=== PATIENT | male | born 1965 | race Caucasian/White ===

== ENCOUNTER 2024-08-23 09:41 | Day surgery (SDC) | payer OTHER, BC ==
[2024-08-20 12:08] LABS: Anion Gap 7.6 mEq/L (5.0-15.0); Potassium 4.6 mEq/L (3.5-5.1)
[2024-08-20 12:20] LABS: Absolute Lymphocytes (CBC) 1.1 K/uL (0.7-4.9); Absolute Monocytes 0.5 K/uL (0.1-1.3); Absolute Neutrophil 4.4 K/uL (1.8-8.0); Basophils % 0.3 % (0-1.3); Eosinophils % 0.7 % (0-4.4); Hematocrit 43.8 % (39.6-49.0); Hemoglobin 15.8 g/dL (13.6-17.9); Lymphocytes % 18.5 % (15.3-44.8); MCH 30.8 pg (27.0-35.0); MCV 85.6 fL (80-100); MPV 7.2 fL (7.6-11.3); Monocytes % 7.9 % (3.3-12.3); Neutrophils % 72.6 % (41.7-73.7); Platelets 253 thou/uL (152-406); RBC Red Blood Cell Count 5.11 M/uL (4.33-5.43); Red Cell Distribution Width 13.6 % (12.1-15.2)
--- NOTE | 2024-08-21 11:31 | EKG ---
Test Date: 2024-08-20 Test Time: 12:13:36 Transit Operator: LOVE MEASUREMENT RESULTS: Intervals: Rate: 74 UT: 140 QRSD: 88 QT: 420 QTc: 466 [place]: P: 62 UT: 140 QRS: 40 T: 50 INTERPRETIVE STATEMENTS: Normal sinus rhythm Possible Left atrial enlargement Septal infarct, age undetermined Abnormal ECG No previous ECG available for comparison Electronically Signed On 08-21-24 11:28:18 HEALTH CONSULTANT by Jackson Isaacs
[2024-08-23 10:19] LABS: Anion Gap 8.2 mEq/L (5.0-15.0); Potassium 4.2 mEq/L (3.5-5.1)
[2024-08-23 10:31] VITALS: BP 152/82; TEMP 99.4; O2SAT 99
== END 2024-08-23 10:26 | disposition home or self-care (01) ==
LOC: OR 09:41
PROVIDERS: ATTEND Surgery
DX: K40.90 Unilateral inguinal hernia, without obstruction or gangrene, not specified as recurrent (principal); Z53.09 Procedure and treatment not carried out because of other contraindication
CPT/HCPCS: 36415; 80048; 85025; 93005

== ENCOUNTER 2024-10-06 13:11 | Emergency (ER) | payer OTHER, BC ==
--- OUTSIDE RECORDS SUMMARY | 2024-10-06 13:15 | XMS REPORT | Continuity of Care Document ---
Author Name Unknown Organization [facility] [place] Address [address] [place] [address] Care Team Providers Care Radio Antenna Installer Name Role Phone Russell Cowan MD Unavailable [phone] Marisela Rao MD Primary Care Provider + [phone] Wendy Christianson [facility] Unavailable [phone] Valentina Arias MD PhD Unavailable + [phone] Sonido Shaw MD Unavailable Encounters Date Type Department Care Team Description 09/26/2024 Orders Only [facility] [address] [place] [address] Main [facility], 7th [address] [place], [place] [id number] Cecy Sorto APRN Oligodendroglioma (Primary Dx); Hyposmolality and/or hyponatremia 09/04/2024 Telephone [facility] [address] [facility] Main [facility], 7th [place] [address] Laina Zuniga, TRINI 06/28/2024 Orders Only [facility] [address] [facility] Main [facility], 7th [address] [place], [place] [id number] Cecy Sorto APRN Oligodendroglioma (Primary Dx) 06/24/2024 10:20 AM GLASS ENAMEL MIXER - 06/24/2024 11:59 PM GLASS ENAMEL MIXER Hospital Encounter Radiation Treatment Center [address] [facility], 1st [place] [address] Valentina Arias MD PhD Oligodendroglioma (Primary Dx) Discharge Disposition: Home 06/18/[address] Imaging [address] [facility], 7th [place] [address] Haleigh Hand MD 06/18/2024 Travel 06/18/2024 9:15 AM GLASS ENAMEL MIXER Ancillary Procedure [facility] Outpatient [facility] [address] [place] [address] Marisela Rao MD Oligodendroglioma 06/18/2024 1:00 PM GLASS ENAMEL MIXER Office Visit [facility] [address] [facility], 7th [place] [address] Marisela Rao MD Oligodendroglioma 01/16/2024 4:00 PM CDT Telephone [facility] [address] [facility], 7th [place] [address] Marisela Rao MD 12/20/2023 Orders Only Neuroradiology [address] [place] [address] Brandon Calderon MD 12/20/2023 8:48 AM CDT - 12/20/2023 11:59 PM CDT Hospital Encounter Proton Therapy Center [address] [place] [address] Valentina Arias MD PhD Oligodendroglioma Discharge Disposition: Home 12/19/2023 Travel 12/19/2023 9:15 AM CDT Ancillary Procedure [facility] [address] [place] [address] Cecy Sorto APRN Oligodendroglioma 12/19/2023 1:00 PM CDT Office Visit [facility] [address] [facility], 7th [place] [address] Marisela Rao MD Oligodendroglioma 11/07/2023 Orders Only [facility] [address] [facility] Main Bldg, 7th [place] [address] Cecy Sorto APRN Oligodendroglioma (Primary Dx) 10/25/2023 Orders Only [facility] [address] [facility] Main dg, 7th [place] [address] Cecy Sorto APRN Seizure, not otherwise specified (Primary Dx); Oligodendroglioma; 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 Active loratadine (CLARITIN) 10 mg tablet Take 1 tablet (10 mg) by mouth every 8 (eight) hours as needed for allergies. Active ascorbic acid, vitamin C, (VITAMIN C) 100 mg tablet Take 5 tablets (500 mg) by mouth daily. Active cholecalciferol, vitamin D3, (VITAMIN D3) 5,000 units tab tablet Take 400 Units by mouth. Active OXcarbazepine (TrileptaL) 300 mg tabletIndication s:Oligodendrogli jerry,Seizure, not otherwise specified Take 2 tablets (600 mg) by mouth twice daily. 360 tablet 3 10/25/19 24 Active polyethylene glycol (MIRALAX) 17 g packetIndication s:Saddle embolism of pulmonary artery,Acute deep venous thrombosis of right femoral vein,Other constipation Take 17 g by mouth daily as needed (constipati on). 0 08/24/19 22 024 Discontinued(Ot her/Not Applicable) zinc gluconate 50 mg tablet Take 1 tablet (50 mg) by mouth daily. 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 90 tablet 3 09/17/19 23 024 Discontinued(Re order) OXcarbazepine (TrileptaL) 150 mg tabletIndication s:Oligodendrogli jerry,Seizure, not otherwise specified Take 3 tablets (450 mg) by mouth twice daily. 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 90 tablet 3 10/25/19 24 024 Discontinued(Th erapy completed) after 10/07/2023 Active Problems Problem Noted Date Diagnosed Date Long-term use of anticoagulants 11/15/2022 Assessment & Plan (11/15/2022 9:37 AM CDT): At this time, will place order for IVC retrieval. Original plan was for patient to stay on anticoagulation management for 3 months post retrieval. Due to oncologic history of brain CA, may need to be on anticoagulation management low dose indefinitely. 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 He was previously experiencing headaches, but they have resolved on dexamethasone 2mg daily. The pt will begin steroid taper next week, per Dr. Arias. Labs today are unremarkable and there is no recent imaging. Plan is to proceed with adjuvant Temodar chemotherapy x 12 cycles. Pt will RTC in 3 weeks for labs, imaging, and visit to discuss starting treatment with Temodar. Constipation 06/02/2020 Assessment & Plan (06/02/2020 11:08 AM GLASS ENAMEL MIXER): Pt has been experiencing constipation since starting XRT. He is taking senna 2 tabs daily, without much relief. He added miralax next week, but he experienced a few days of loose stools. Recommended continuing miralax to control constipation, and using senna as a suplementary. Will continue to monitor, especially as pt begin Temodar. Lesion of brain 03/16/2020 Overview (03/16/2020): Added automatically from request for surgery [id number] Mass lesion of brain 02/25/2020 Seizure 02/25/2020 Other signs and symptoms involving cognition after 10/07/2023 Family History Medical History Relation Name Comments -Other cancer Father Xiang Rouse Throat can cer due to smoking Breast cancer Mother Leobardo Rouse Breast cancer Sister Phyllis Mcmanus Relation Name Status Comments Father Xiang Rouse Mother Leobardo Rouse Sister Phyllis Mcmanus after 10/07/2023 Social History Smoking Status as of 06/24/2024 Tobacco Use Types Packs/Day Years Used Date Smoking Tobacco: Former Cigarettes 0 Smokeless Tobacco: Never Comments:Sinus issues Alcohol Use as of 06/24/2024 Alcohol Use Standard Drinks/Week Comments Yes 4 (1 standard drink = 0.6 oz pur e alcohol) Sex and Gender Information Value Date Recorded Sex Assigned at Male 02/21/2020 9:43 AM CDT Legal Sex Male 12:56 PM CDT Gender Identity Male 02/21/2020 9:43 AM CDT Sexual Orientation Straight 02/21/2020 9: 43 AM CDT after 10/07/2023 Last Filed Vital Signs Vital Sign Reading Time Taken Comments Blood Pressure 106/64 06/18/2024 12:53 PM GLASS ENAMEL MIXER Pulse 94 06/18/2024 12:53 PM GLASS ENAMEL MIXER Temperature 36.4 C (97.5 F) 06/18/2024 12:[address] Respiratory Rate 18 06/18/2024 12:53 PM GLASS ENAMEL MIXER Oxygen Saturation 98% 06/18/2024 12:53 PM GLASS ENAMEL MIXER Inhaled Oxygen Concentration - - Weight 71 kg (156 lb 8.4 oz) 06/18/2024 9:00 AM GLASS ENAMEL MIXER Height 180.8 cm (5' 11.18") 12/19/2023 11:37 AM CDT Body Mass Index 21.72 12/19/2023 11:37 AM CDT after 10/07/2023 Plan of Treatment Upcoming Encounters Date Type Department Care Team (Late st Contact Info) Description 12/17/2024 7:30 AM CDT Ancillary Procedure Radiology Outpatient Center [address] [place] [address] Marisela Rao MD [address] [place] [id number] [email or web address] 12/[email or web address] 1:00 PM CDT Office Visit [facility] - Neuro Oncology [address] [place] [address] Main [facility], 7th [place] [address] Marisela Rao MD [address] [place] [id number] [email or web address] 12/18/2024 9:40 AM CDT Appointment Pro[facility] Therapy [facility] [address] [place] [address] Valentina Arias MD PhD [address] [place] [phone] [email or web address] after 10/07/2023 Medical Devices Implanted Type Area Contract Technician Device Identifier Shelf Expiration Date Model / Serial / Lot Screw Matrixneuro 4mm Self Drilling Pkg 1 - Sn/A Implanted:Qty: 14 on 03/20/2020 by Ashlyn Wilson MD at [facility] Metalware Left: Cranial SYN[employer]ES [employer] [id number] 4.01 / N/A / N/A Plate Crani Str 2h Lo Prof - Sn/A Implanted:Qty: 2 on 03/20/2020 by Aslhyn Wilson MD at [facility] Metalware Left: Cranial SYNTHES [facility] 2 / N/A / N/A Myesha Hole Crani 17mm Low Profile - Sn/A Implanted:Qty: 2 on 03/20/2020 by Ashlyn Wilson MD at [facility] Metalware Left: Cranial SYNTHES [facility] 3 / N/A / N/A Sealant Duraseal 5ml - Snone Implanted:Qty: 1 on 03/20/2020 by Ashlyn Wilsno MD at [facility] Skin/Tissue Left: Brain COVIDIEN 03/16/2021 [id number] / NONE / [id number] Explanted Type Area Contract Technician Device Identifier Shelf Expiration Date Model / Serial / Lot Metal In The Eyes-04/28/2000 Implanted:04/28 (Quantity not on file) Bilateral: Orbit Description:Cleared for scan darius by Dr. Brandon Calderon (Attending Neuro Radiologist) on 04.28.23 at 11:[address] Head exam dated 08.20.2021. after 10/07/2023 Procedures Procedure Name Priority Date/Time Associated Diagnosis Comments MRI BRAIN W WO CONTRAST Routine 06/18/2024 11:03 AM GLASS ENAMEL MIXER Oligodendroglioma MRI BRAIN W WO CONTRAST Routine 12/19/2023 10:27 AM CDT Oligodendroglioma after 10/07/2023 Results * MRI Brain with and without Contrast (06/18/2024 11:03 AM GLASS ENAMEL MIXER) Only the most recent of2 resultswithin the time period is included. Anatomical Region Laterality Modality Head Magnetic Resonan ce 06/18/2024 1:51 PM GLASS ENAMEL MIXER Impressions 06/18/2024 2:01 PM GLASS ENAMEL MIXER No appreciable change compared to the prior study (Category: BT-2) ACTIONABLE ITEMS/RECOMMENDATIONS*: None. *An Actionable Finding is a finding that may be unrelated to the original reason for imaging but potentially actionable, meaning further investigation may be necessary. The Actionable Findings Vigilance Unit (AFVU) assists medical providers with responding to additional radiologic findings that are unexpected and potentially actionable. Narrative 06/18/2024 2:01 PM GLASS ENAMEL MIXER FULL RESULT: Examination: MRI BRAIN W WO CONTRAST on 06/18/2024 11:03 AM. 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 TECHNIQUE: MRI of the brain without and with IV contrast was performed. FINDINGS: TUMOR: Location: Left frontal and left frontal operculum. Posttreatment changes: Expected post treatment changes are noted. FLAIR: There is no change in extent of nonenhancing FLAIR abnormality. No new sites of FLAIR abnormality are present. Enhancement: There is no change in extent of enhancing component at primary site. No new sites of enhancement. Diffusion: There is no diffusion abnormality to suggest hypercellular tumor. Perfusion: No abnormally increased CBV is seen. Other: No significant hemorrhage is identified. No herniation is seen. Procedure Note Dylan Quiroga MD - 06/18/2024 FULL RESULT: Examination: MRI BRAIN W WO CONTRAST on 06/18/2024 11:03 AM. 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 TECHNIQUE: MRI of the brain without and with IV contrast was performed. FINDINGS: TUMOR: Location: Left frontal and left frontal operculum. Posttreatment changes: Expected post treatment changes are noted. FLAIR: There is no change in extent of nonenhancing FLAIR abnormality. Nonew sites of FLAIR abnormality are present. Enhancement: There is no change in extent of enhancing component atprimary site. No new sites of enhancement. Diffusion: There is no diffusion abnormality to suggest hypercellulartumor. Perfusion: No abnormally increased CBV is seen. Other: No significant hemorrhage is identified. No herniation is seen. IMPRESSION: No appreciable change compared to the prior study (Category: BT-2) ACTIONABLE ITEMS/RECOMMENDATIONS*: None. *An Actionable Finding is a finding that may be unrelated to the originalreason for imaging but potentially actionable, meaning furtherinvestigation may be necessary. The Actionable Findings Vigilance Unit(AFVU) assists medical providers with responding to additional radiologicfindings that are unexpected and potentially actionable. 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 10/25/2023 Seizure, not otherwise specified 10/25/2023 Oligodendroglioma 11/07/2023 Oligodendroglioma 12/19/2023 Oligodendroglioma 12/19/2023 Oligodendroglioma 12/20/2023 Oligodendroglioma 06/18/2024 Oligodendroglioma 06/18/2024 Oligodendroglioma 06/24/2024 Oligodendroglioma 06/28/2024 Oligodendroglioma 09/26/2024 Hyposmolality and/or hyponatremia 09/26/2024 after 10/07/2023 Care Teams Radio Antenna Installer Relationship Specialty Start Date End Date Russell Cowan MD [address] [place] [address] [email or web address] PCP - External Follow Up A Internal Medicine 02/18/20 Marisela Rao MD [address] [place] [id number] [email or web address] PCP - General Neuro-Oncology 06/23/20 Wendy Christianson, [facility] [address] [place] [phone] [email or web address] Speech Language Pathologist Speech Pathology 03/18/20 Valentina Arias MD PhD [address] [place] [address] [email or web address] Consulting Physician Radiation Oncology 02/26/20 Sonido Shaw MD [address] [place] [address] [email or web address] Consulting Physician Nephrology 11/23/20 after 10/07/2023
[2024-10-06] MEDS ORDERED: ONDANSETRON 4 MG/2 ML VIAL ONE (14:01)
[2024-10-06] MEDS ORDERED: MORPHINE 2 MG/ML SYR ONE (14:02)
[2024-10-06 14:05] LABS: Absolute Eosinophils 0.1 K/uL (0-0.5); Absolute Monocytes 0.6 K/uL (0.1-1.3); Absolute Neutrophil 5.7 K/uL (1.8-8.0); Basophils % 0.4 % (0-1.3); Eosinophils % 1.1 % (0-4.4); Hematocrit 42.6 % (39.6-49.0); Hemoglobin 14.7 g/dL (13.6-17.9); Lymphocytes % 13.9 % (15.3-44.8); MCH 30.7 pg (27.0-35.0); MCHC 34.6 g/dL (32.0-36.0); MCV 88.9 fL (80-100); MPV 6.7 fL (7.6-11.3); Monocytes % 7.9 % (3.3-12.3); Neutrophils % 76.7 % (41.7-73.7); Platelets 241 thou/uL (152-406); RBC Red Blood Cell Count 4.79 M/uL (4.33-5.43); Red Cell Distribution Width 13.3 % (12.1-15.2)
[2024-10-06 14:31] LABS: Albumin 3.7 g/dL (3.4-5.0); Albumin/Globulin Ratio 1.1 (1.1-1.8); Anion Gap 8.2 mEq/L (5.0-15.0); Bilirubin Total 0.4 mg/dL (0.2-1.0); Globulin 3.4 g/dL (2.3-3.5); Potassium 4.2 mEq/L (3.5-5.1); Protein, Total 7.1 g/dL (6.4-8.2)
--- NOTE | 2024-10-06 16:05 | RAD REPORT ---
EXAMINATION: CT PELVIS WITH CONTRAST CLINICAL INDICATION: Male, 59 years old. R inguinal hernia TECHNIQUE: CT pelvis was performed, following IV contrast administration, as per department protocol. Axial, sagittal and coronal reconstructions were obtained. One or more of the following dose reduction techniques were used: Automated exposure control, adjustment of the mA and/or kV according to patient size, and/or iterative reconstruction. Unless otherwise specified, incidental findings do not require dedicated imaging follow-up. COMPARISON: No prior exam. FINDINGS: MUSCULOSKELETAL: No acute or suspicious osseous abnormality. URINARY SYSTEM: No abnormalities of the included kidneys and ureters. Urinary bladder is unremarkable . GASTROINTESTINAL TRACT: Right inguinal hernia containing nondistended segment of small bowel, not coy franklyn the scrotum. Included small bowel is normal in caliber. No wall thickening or bowel inflammatory changes. LYMPH NODES: No lymphadenopathy. ABDOMINAL AORTA AND OTHER VESSELS: Normal caliber aorta and IVC. ADDITIONAL FINDINGS: None. IMPRESSION: Right inguinal hernia containing nondistended small bowel, not reaching the scrotum. No other acute abnormalities of the pelvis.
--- NOTE | 2024-10-06 16:15 | ER ---
Nurse's Notes [facility] Name: Xiang Rouse Age: 59 yrs Sex: Male : 1965 Arrival Date: 10/06/2024 Time: 13:11 Bed 17 Private MD: Diagnosis: Right inguinal hernia, abdominal pain Presentation: 10/06 13:32 Chief complaint: Patient states: hernia pain. Coronavirus screen: Client denies travel hb out of the [place] in the last 14 days. Ebola Screen: No symptoms or risks identified at this time. Initial Sepsis Screen: Does the patient meet any 2 criteria? No. Patient's initial sepsis screen is negative. Does the patient have a suspected source of infection? No. Patient's initial sepsis screen is negative. Risk Assessment: Do you want to hurt yourself or someone else? Patient reports no desire to harm self or others. Onset of symptoms was October 06, 2024. 13:32 Method Of Arrival: Ambulatory hb 13:32 Acuity: NUVIA 3 hb Triage Assessment: 13:35 General: Appears in no apparent distress. Behavior is calm, cooperative. Pain: hb Complains of pain in abdomen Pain currently is 7 out of 10 on a pain scale. Neuro: Level of Consciousness is awake, alert, obeys commands, Oriented to person, place, time, situation. Cardiovascular: Patient's skin is warm and dry. Respiratory: Reports. GI: No signs and/or symptoms were reported involving the gastrointestinal system. GI: Reports lower abdominal pain. : No signs and/or symptoms were reported regarding the genitourinary system. - Immunization history:: Adult Immunizations unknown. - Social history:: Smoking status: unknown. Screenin:36 [facility] ED Fall Risk Assessment (Adult) History of falling in the last 3 months, hb including since admission No falls in past 3 months (0 pts) Confusion or Disorientation No (0 pts) Intoxicated or Sedated No (0 pts) Impaired Gait No (0 pts) Mobility Assist Device Used No (0 pt) Altered Elimination No (0 pt) Score/Fall Risk Level 0 - 2 = Low Risk Maintained a safe environment, Hourly rounding (assess needs \T\ fall precautionary measures) done. Abuse screen: Denies threats or abuse. Denies injuries from another. Nutritional screening: No deficits noted. Tuberculosis screening: No symptoms or risk factors identified. Assessment: 13:37 General: see triage. hb 14:30 Reassessment: Patient appears in no apparent distress at this time. Patient and/or kj2 family updated on plan of care and expected duration. Pain level reassessed. Patient is alert, oriented x 3, equal unlabored respirations, skin warm/dry/pink. 15:30 Reassessment: Patient appears in no apparent distress at this time. Patient and/or kj2 family updated on plan of care and expected duration. Pain level reassessed. Patient is alert, oriented x 3, equal unlabored respirations, skin warm/dry/pink. 16:20 Reassessment: Patient appears in no apparent distress at this time. Patient and/or kj2 family updated on plan of care and expected duration. Pain level reassessed. Patient is alert, oriented x 3, equal unlabored respirations, skin warm/dry/pink. Vital Signs: 13:32 BP 152 / 87; Pulse 87; Resp 20; Pulse Ox 100% on R/A; Weight 70.31 kg; Height 5 ft. 10 hb in. ; 15:30 BP 131 / 75; Pulse 80; Resp 18; Pulse Ox 100% ; kj2 16:20 BP 142 / 82; Pulse 80; Resp 18; Temp 98.2; Pulse Ox 100% on R/A; kj2 13:32 Body Mass Index 22.24 (70.31 kg, 177.8 cm) hb ED Course: 13:16 Patient arrived in ED. mr 13:17 Warner Pappas MD is Attending Physician. sp3 13:32 Linda Kenny, RN is Primary Nurse. hb 13:34 Triage completed. hb 13:37 Arm band placed on Patient placed in an exam room, on a stretcher. hb 13:37 Patient has correct armband on for positive identification. Bed in low position. Call hb light in reach. Adult w/ patient. Provided Education on: call light. 13:55 Inserted saline lock: 20 gauge in left antecubital area, using aseptic technique. Blood kj2 collected. Flushed with 10 mL NS. 15:03 CT Pelvis w cont In Process Unspecified. EDMS 16:14 Quintin Keene MD is Referral Physician. sp3 16:21 No provider procedures requiring assistance completed. IV discontinued, intact, kj2 bleeding controlled, No redness/swelling at site. Pressure dressing applied. Administered Medications: 14:06 Drug: morphine IVP or IV 2 mg IVP once over 4 mins Route: IVP; Infused Over: 4 mins; kj2 Site: left antecubital; 15:51 Follow up: Response: No adverse reaction kj2 14:06 Drug: Ondansetron IVP 4 mg IVP once; over 2 minutes Route: IVP; Site: left antecubital; kj2 15:50 Follow up: Response: No adverse reaction kj2 Medication: 13:36 VIS not applicable for this client. Outcome: 16:14 Discharge ordered by . claudio 16:22 Discharged to home ambulatory, kj2 16:22 Condition: stable 16:22 Discharge instructions given to patient, family, Instructed on discharge instructions, follow up and referral plans. Demonstrated understanding of instructions, follow-up care, 16:37 Patient left the ED. kj2 Signatures: Dispatcher [employer] EDValentina Edmond, Reg Reg Linda Estrada RN RN Warner Pappas MD MD sp3 April Dodge RN RN kj2
--- NOTE | 2024-10-06 16:15 | EDPHYS ---
Physician Documentation [facility] Name: Xiang Rouse Age: 59 yrs Sex: Male : 1965 Arrival Date: 10/06/2024 Time: 13:11 Bed 17 Private MD: ED Physician Warner Pappas HPI: 10/06 14:03 This 59 yrs old Male presents to ER via Ambulatory with complaints of Hernia. sp3 14:03 59-year-old male with complex medical history including prior brain tumor, post-COVID sp3 complications, and ongoing right inguinal hernia set for surgery next week with Dr. Keene presents to the ED with worsening pain at inguinal hernia site. Limited communication from patient therefore ROS, history and physical limited. Most communication to her spouse. She states that his pain has been going on for the last 24 to 48 hours. No fever, bleeding, melena, diarrhea, vomiting or any other signs or symptoms reported.. - Immunization history:: Adult Immunizations unknown. - Social history:: Smoking status: unknown. ROS: 14:04 Constitutional: Negative for fever, chills, and weight loss, Eyes: Negative for injury, sp3 pain, redness, and discharge, ENT: Negative for injury, pain, and discharge, Neck: Negative for injury, pain, and swelling, Cardiovascular: Negative for chest pain, palpitations, and edema, Respiratory: Negative for shortness of breath, cough, wheezing, and pleuritic chest pain, Back: Negative for injury and pain, MS/Extremity: Negative for injury and deformity, Skin: Negative for injury, rash, and discoloration, Neuro: Negative for headache, weakness, numbness, tingling, and seizure, 14:04 All other systems are negative, 14:04 Unable to obtain ROS due to Baseline communication challenge, Exam: 14:05 Constitutional: This is a well developed, well nourished patient who is awake, alert, sp3 and in no acute distress. Head/Face: Normocephalic, atraumatic. Chest/axilla: Normal chest wall appearance and motion. Nontender with no deformity. No lesions are appreciated. Cardiovascular: Regular rate and rhythm with a normal S1 and S2. No gallops, murmurs, or rubs. Normal PMI, no JVD. No pulse deficits. Respiratory: Lungs have equal breath sounds bilaterally, clear to auscultation and percussion. No rales, rhonchi or wheezes noted. No increased work of breathing, no retractions or nasal flaring. Back: No spinal tenderness. No costovertebral tenderness. Full range of motion. 14:05 Abdomen/GI: Pain to right lower quadrant. Hernia is present but did not try to fully reduce as it had caused pain., Vital Signs: 13:32 BP 152 / 87; Pulse 87; Resp 20; Pulse Ox 100% on R/A; Weight 70.31 kg; Height 5 ft. 10 hb in. ; 15:30 BP 131 / 75; Pulse 80; Resp 18; Pulse Ox 100% ; kj2 16:20 BP 142 / 82; Pulse 80; Resp 18; Temp 98.2; Pulse Ox 100% on R/A; kj2 13:32 Body Mass Index 22.24 (70.31 kg, 177.8 cm) hb MDM: 13:21 Medical Screening Exam initiated sp3 14:05 Data reviewed: vital signs, nurses notes, lab test result(s), radiologic studies. ED sp3 course: 59-year-old male with PMH above and right inguinal hernia. Will assess with CT scan of the pelvis with IV contrast, general labs and supportive care. Patient did request pain medication due to the pain and have ordered 2 mg of morphine and 4 mg of Zofran to start. Disposition pending workup and patient course.. 16:13 ED course: CT demonstrates no strangulation or incarceration. Vital signs were normal sp3 and all labs are normal as well. Patient's pain is improved. I discussed case with Dr. Keene who agrees to discharge patient as long as his pain is improved. They are still ago for surgery for the upcoming Monday. We will discharge him on tramadol.. 10/06 13:34 Order name: CBC with Diff; Complete Time: 16:07 sp3 10/06 13:34 Order name: CMP; Complete Time: 16:07 sp3 10/06 13:34 Order name: Lipase; Complete Time: 16:07 sp3 10/06 13:34 Order name: CT Pelvis w cont; Complete Time: 16:07 sp3 10/06 13:34 Order name: IV Saline Lock; Complete Time: 15:50 sp3 10/06 13:34 Order name: Labs collected and sent; Complete Time: 15:50 sp3 Administered Medications: 14:06 Drug: morphine IVP or IV 2 mg IVP once over 4 mins Route: IVP; Infused Over: 4 mins; kj2 Site: left antecubital; 15:51 Follow up: Response: No adverse reaction kj2 14:06 Drug: Ondansetron IVP 4 mg IVP once; over 2 minutes Route: IVP; Site: left antecubital; kj2 15:50 Follow up: Response: No adverse reaction kj2 Disposition Summary: 10/06/24 16:14 Discharge Ordered Notes: Location: Home sp3 Condition: Stable sp3 Diagnosis - Right inguinal hernia, abdominal pain sp3 Followup: sp3 - With: Private Physician - When: Upon discharge from the Emergency Department - Reason: Continuance of care Followup: sp3 - With: Quintin Keene MD - When: Upon discharge from the Emergency Department - Reason: Continuance of care Discharge Instructions: - Discharge Summary Sheet sp3 - Inguinal Hernia, Adult sp3 Forms: - Medication Reconciliation Form sp3 - Antibiotic Education sp3 - Prescription Opioid Use sp3 - Patient Portal Instructions sp3 - Leadership Thank You Letter sp3 Prescriptions: - Tramadol 50 mg Oral Tablet - take 1 tablet ORAL route every 8 hours as needed; 12 tablet; Refills: 0, sp3 Product Selection Permitted Signatures: Dispatcher [employer] Linda Christian, RN RN Warner Taylor MD MD sp3 April Dodge RN RN kj2
[2024-10-06 16:41] VITALS: O2SAT 100
[2024-10-06 16:44] VITALS: BP 142/82; TEMP 98.2
== END 2024-10-06 16:37 | disposition home or self-care (01) ==
LOC: ER 13:11
DX: K40.90 Unilateral inguinal hernia, without obstruction or gangrene, not specified as recurrent (principal)
CPT/HCPCS: 85025; 36415; 83690; 80053; 72193; 96375; 96374; 99284; Q9967; J2270; J2405

== ENCOUNTER 2024-10-11 10:07 | Day surgery (SDC) | payer OTHER, BC ==
[2024-10-10 11:14] LABS: Anion Gap 11.1 mEq/L (5.0-15.0); Potassium 4.1 mEq/L (3.5-5.1)
[2024-10-11] MEDS ORDERED: MIDAZOLAM HCL 2 MG/2 ML INJ ONE (10:42)
[2024-10-11] MEDS ORDERED: ROCURONIUM 50 MG/5 ML VIAL IV ONE (10:42)
[2024-10-11] MEDS ORDERED: propofoL 200 MG/20 ML VIAL IV ONE (10:42)
[2024-10-11] MEDS ORDERED: FENTANYL CITR 100 MCG/2 ML ONE ×3 (10:42→12:57)
[2024-10-11] MEDS ORDERED: LIDOCAINE 2% MPF 5 ML VIAL ONE (10:42)
[2024-10-11] MEDS ORDERED: Ringers Lactate 1,000 ML IV ONE (10:51)
[2024-10-11] MEDS: NA CHLORIDE 0.9% 1,000 ML ONE ×2 (11:20→13:49)
[2024-10-11] MEDS: CEFAZOLIN SODIUM 1 GM/VIAL ONE ×2 (11:58→12:15)
[2024-10-11] MEDS ORDERED: EPHEDRINE SULF 50 MG/ML VIAL ONE (12:01)
[2024-10-11] MEDS: LIDOCAINE HCL/EPINEPHRINE 20 ML MDV ONE (12:15)
[2024-10-11] MEDS ORDERED: ONDANSETRON 4 MG/2 ML VIAL ONE (12:27)
[2024-10-11] MEDS ORDERED: dexAMETHasone 4 MG/ML VIAL ONE (12:27)
[2024-10-11] MEDS ORDERED: NEOSTIGMINE 1 MG/ML -10 ML VIAL ONE (13:15)
[2024-10-11] MEDS ORDERED: GLYCOPYRROLATE 0.2 MG/ML SYR ONE (13:15)
--- NOTE | 2024-10-11 13:45 | P.OP ---
Preoperative diagnosis: RIGHT Inguinal Hernia Postoperative diagnosis: RIGHT Inguinal Hernia Primary procedure: Open RIGHT Inguinal Hernia Repair with mesh Anesthesia: GETA + local Estimated blood loss: <5cc Specimen: Hernia Sack, Cord Lipoma Findings: ext oblique aponeurosis thin Complications: None Implants: Bard Perfix Medium Plug and Patch Mesh Transferred to: Recovery Room Condition: Good
[2024-10-11] MEDS: FENTANYL CITR 100 MCG/2 ML ONE (14:17)
[2024-10-11] MEDS: HYDROMORPHONE HCL 1 MG/ML INJ ONE (14:29)
[2024-10-11] MEDS: PROMETHAZINE INJ 25 MG/ML AMP ONE (14:38)
--- NOTE | 2024-10-11 14:46 | OP ---
Date of Procedure: 10/11/2024 Surgeon: Quintin Keene MD, Preoperative Diagnosis: Right inguinal hernia. Postoperative Diagnosis: Right inguinal hernia. Procedure Performed: Right inguinal hernia repair with mesh. Anesthesia: General endotracheal plus local 1% lidocaine with epinephrine. Estimated Blood Loss: 5 cc. Specimen: Hernia sac and cord lipoma. Findings: External oblique aponeurosis and thin alveolar . Complication: None. Implants: Bard medium PerFix plug and patch hernia repair System. The patient transferred to recovery room in good condition. Procedure In Detail: After informed consent was obtained, the patient was brought to the operating r oom, prepped and draped in the usual sterile fashion. After anesthetizing the skin, a lower inguinal incision was made in the inguinal region down to subcutaneous tissues. I then dissected down throug h Camper fat and Adalid fascia to expose the external oblique aponeurosis, which was found to be quit e thin and alveolar, essentially was transparent mostly through at this point, opened sharply with a 15 blade and opened in its entirety using the Metzenbaum scissors. At this point, I encircled the sp ermatic cord structures. There was thick fibrous attachments between these hernia sac and cord struc tures. Meticulous dissection was performed to remove these from the structures. I then ligated the hernia sac, imbricated it with 3-0 Vicryl suture and placed back in the preperitoneal space. I then digitally palpated the area and placed a medium Bard PerFix plug into the preperitoneal space, deploy ed at this point, and secured it circumferentially around using 2-0 PDS sutures with good approximati on of the tissues. I then sized a medium patch appropriately, trimmed it, and placed on the pubic tu bercle on the medial aspect and re-encircled the spermatic cord structures. I then secured to the me dial and lateral shelving edge of the internal oblique aponeurosis and the underside of the inguinal ligament circumferentially down after securing to the pubic tubercle with the same said 2-0 PDS sutur es in interrupted fashion. The reconstitute deep inguinal ring without evidence of complication. Th e area was copiously irrigated and the external oblique aponeurosis was closed over the top. However , it is quite thin and alveolar using a running 3-0 Vicryl suture and deep dermal plane was closed wi th same set 3-0 Vicryl suture and skin was closed with 4-0 Monocryl in a running fashion. Dermabond placed over top. The patient tolerated the procedure without incident or complication and transferre d to PACU in good condition. All counts correct at the end of the case. VANDANA/ENDY Voice ID: [id number] Report ID: [id number]
[2024-10-11] MEDS: HYDROCODONE/APAP 10/325 TAB ONE (15:29)
[2024-10-11 16:00] VITALS: TEMP 97.1; O2SAT 97
[2024-10-11 18:16] VITALS: BP 130/70
[2024-10-11] MEDS ORDERED: LIDOCAINE JELLY 2% 5 ML SYRINGE TOP ONE ×2 (19:12→19:19)
== END 2024-10-11 20:30 | disposition home or self-care (01) ==
LOC: OR 10:07
PROVIDERS: ATTEND Surgery
PROC: 0YU50JZ Supplement Right Inguinal Region with Synthetic Substitute, Open Approach (ICD-10-PCS; principal; 2024-10-11 11:30)
DX: K40.90 Unilateral inguinal hernia, without obstruction or gangrene, not specified as recurrent (principal)
CPT/HCPCS: 80048; 36415; 88302; 49505; J2550; J2704; J1100; J2710; J2003; J2250; J3010 ×4; J1171; J2405; J7120; J7030 ×2; J0690 ×2

== ENCOUNTER 2024-10-12 00:32 | Emergency (ER) | payer OTHER, BC ==
--- OUTSIDE RECORDS SUMMARY | 2024-10-12 00:35 | XMS REPORT | Continuity of Care Document ---
Author Name Unknown Organization [facility] [place] Address [address] [place] [address] Care Team Providers Care Exceptional Student Education Teacher Name Role Phone Russell Cowan MD Unavailable [phone] Marisela Rao MD Primary Care Provider + [phone] Wendy Christianson [facility] TECHNICIAN Unavailable [phone] Valentina Arias MD PhD Unavailable + [phone] Sonido Shaw MD Unavailable Encounters Date Type Department Care Team Description 09/26/2024 Orders Only [facility] [address] [place] [address] Main [facility], 7th [address] [place], [place] [id number] Cecy Sorto APRN Oligodendroglioma (Primary Dx); Hyposmolality and/or hyponatremia 09/04/2024 Telephone [facility] [address] [facility] Main [facility], 7th [place] [address] Laina Zuniga, TRINI 06/28/2024 Orders Only [facility] Main [facility], 7th Floor [address] [place], [place] [id number] Cecy Sorto APRN Oligodendroglioma (Primary Dx) 06/24/2024 10:20 AM [facility] [employer] [facility] - 06/24/2024 11:59 PM [facility] Hospital Encounter [facility] Treatment [facility] [address] [facility], 1st [place] [address] Valentina Arias MD PhD Oligodendroglioma (Primary Dx) Discharge Disposition: Home 06/18/[address] [facility], 7th [place] [address] Haleigh Hand MD 06/18/2024 Travel 06/18/2024 9:15 AM [facility] [employer] [facility] Ancillary Procedure [facility] Out[facility] [address] [place] [address] Marisela Rao MD Oligodendroglioma 06/18/2024 1:00 PM [facility] Office Visit [facility] [address] [facility], 7th [place] [address] Marisela Rao MD Oligodendroglioma 01/16/2024 4:00 PM CDT Telephone [facility] [address] [facility], 7th [place] [address] Marisela Rao MD 12/20/2023 Orders Only Neuroradiology [address] [place] [address] Brandon Calderon MD 12/20/2023 8:48 AM CDT - 12/20/2023 11:59 PM CDT Hospital Encounter [facility] [address] [place] [address] Valentina Arias MD PhD Oligodendroglioma Discharge Disposition: Home 12/19/2023 Travel 12/19/2023 9:15 AM CDT Ancillary Procedure [facility] [address] [place] [address] Cecy Sorto APRN Oligodendroglioma 12/19/2023 1:00 PM CDT Office Visit [facility] [address] [facility], 7th [place] [address] Marisela Rao MD Oligodendroglioma 11/07/2023 Orders Only [facility] [address] [facility] Main Bldg, 7th [place] [address] Cecy Sorto APRN Oligodendroglioma (Primary Dx) 10/25/2023 Orders Only [facility] [address] [facility] Main dg, 7th [place] [address] Cecy Sorto APRN Seizure, not otherwise specified (Primary Dx); Oligodendroglioma; 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 after 10/13/2023 Allergies Active Allergy Reactions Criticality Noted Date Comments Insect Venom Itching,Swelling 03/02/2020 after 10/13/2023 Medications acetaminophen (TYLENOL) 500 mg tablet Take [...] 10/25/19 24 024 Discontinued(Th erapy completed) after 10/13/2023 Active Problems Problem Noted Date Diagnosed Date [...] 06/02/2020 Assessment & Plan (06/02/2020 11:14 AM [facility] [employer]): Pt has tolerated XRT well, other than [...] 06/02/2020 Assessment & Plan (06/02/2020 11:08 AM [employer]): Pt has been experiencing constipation since starting [...] (03/16/2020): Added automatically from request for surgery [id number] Mass lesion of brain 02/25/2020 Seizure 02/25/2020 Other signs and symptoms involving cognition after 10/13/2023 Family History Medical History Relation Name Comments -Other cancer Father Xiang Rouse Throat can cer due to smoking Breast cancer Mother Leobardo Rouse Breast cancer Sister Phyllis Mcmanus Relation Name Status Comments Father Xiang Rouse Mother Leobardo Rouse Sister Phyllis Mcmanus after 10/13/2023 Social History Smoking Status as of 06/24/2024 [...] Straight 02/21/2020 9: 43 AM CDT after 10/13/2023 Last Filed Vital Signs Vital Sign Reading Time Taken Comments Blood Pressure 106/64 06/18/2024 12:53 PM [facility] [employer] Pulse 94 06/18/2024 12:53 PM [employer] Temperature 36.4 C (97.5 F) 06/18/2024 12:[address] Respiratory Rate 18 06/18/2024 12:53 PM [facility] Oxygen Saturation 98% 06/18/2024 12:53 PM [employer] Inhaled Oxygen Concentration - - Weight 71 kg (156 lb 8.4 oz) 06/18/2024 9:00 AM [facility] Height 180.8 cm (5' 11.18") 12/19/2023 11:37 AM CDT Body Mass Index 21.72 12/19/2023 11:37 AM CDT after 10/13/2023 Plan of Treatment Upcoming Encounters Date Type Department Care Team (Late st Contact Info) Description 12/17/2024 7:30 AM CDT Ancillary Procedure [facility] Outpatient Center [address] [place] [address] Marisela Rao MD [address] [place] [phone] [email or web address] 12/[email or web address]/2024 1:00 PM CDT Office Visit [facility] Neuro Oncology [address] [place] [address] Main [facility], 7th [place] [address] Marisela Rao MD [address] [place] [phone] [email or web address] 12/18/2024 9:40 AM CDT Appointment [facility] [address] [place] [address] Valentina Arias MD PhD [address] [place] [phone] [email or web address] after 10/13/2023 Medical Devices Implanted Type Area Water Mangle Tender Device Identifier Shelf Expiration Date Model / Serial / Lot Screw Matrixneuro 4mm Self Drilling Pkg 1 - Sn/A Implanted:Qty: 14 on 03/20/2020 by Ashlyn Wilson MD at [facility] Metalware Left: Cranial [employer] [id number] 4.01 / N/A / N/A Plate Crani Str 2h Lo Prof - Sn/A Implanted:Qty: 2 on 03/20/2020 by Ashlyn Wilson MD at [facility] Metalware Left: Cranial SYNTHES [facility] 2 / N/A / N/A Myesha Hole Crani 17mm Low Profile - Sn/A Implanted:Qty: 2 on 03/20/2020 by Ashlyn Wilson MD at [facility] Metalware Left: Cranial SYNTHES [facility] 3 / N/A / N/A Sealant Duraseal 5ml - Snone Implanted:Qty: 1 on 03/20/2020 by Ashlyn Wilson MD at [facility] Skin/Tissue Left: Brain COVIDIEN 03/16/2021 [id number] / NONE / [id number] Explanted Type Area Water Mangle Tender Device Identifier Shelf Expiration Date Model / Serial / Lot Metal In The Eyes-04/28/2000 Implanted:04/28 (Quantity not on file) Bilateral: Orbit Description:Cleared for scan darius by Dr. Brandon Calderon (Attending Neuro Radiologist) on 04.28.23 at 11:[address] Head exam dated 08.20.2021. after 10/13/2023 Procedures Procedure Name Priority Date/Time Associated Diagnosis Comments MRI BRAIN W WO CONTRAST Routine 06/18/2024 11:03 AM [facility] [facility] [employer] Oligodendroglioma MRI BRAIN W WO CONTRAST Routine 12/19/2023 10:27 AM CDT Oligodendroglioma after 10/13/2023 Results * MRI Brain with and without Contrast (06/18/2024 11:03 AM [facility] [facility] [employer]) Only the most recent of2 resultswithin the time period is included. Anatomical Region Laterality Modality Head Magnetic Resonan ce 06/18/2024 1:51 PM [facility] [facility] [employer] Impressions 06/18/2024 2:01 PM [facility] [employer] No appreciable change compared to the prior study (Category: BT-2) ACTIONABLE ITEMS/RECOMMENDATIONS*: None. *An Actionable Finding is a finding that may be unrelated to the original reason for imaging but potentially actionable, meaning further investigation may be necessary. The Actionable Findings Vigilance Unit (AFVU) assists medical providers with responding to additional radiologic findings that are unexpected and potentially actionable. 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 Seizure, not otherwise specified 10/25/2023 Oligodendroglioma 11/07/2023 Oligodendroglioma 12/19/2023 Oligodendroglioma 12/19/2023 Oligodendroglioma 12/20/2023 Oligodendroglioma 06/18/2024 Oligodendroglioma 06/18/2024 Oligodendroglioma 06/24/2024 Oligodendroglioma 06/28/2024 Oligodendroglioma 09/26/2024 Hyposmolality and/or hyponatremia 09/26/2024 after 10/13/2023 Care Teams Exceptional Student Education Teacher Relationship Specialty Start Date End Date Russell Cowan MD [address] [place] [address] [email or web address] PCP - External Follow Up A Internal Medicine 02/18/20 Marisela Rao MD [address] [place] [id number] [email or web address] PCP - General Neuro-Oncology 06/23/20 Wendy Christianson, [facility] TECHNICIAN [address] [place] [phone] [email or web address] Speech Language Pathologist Speech Pathology 03/18/20 Valentina Arias MD PhD [address] [place] [address] [email or web address] [email or web address] Physician Radiation Oncology 02/26/20 Sonido Shaw MD [address] [place] [address] [email or web address] [email or web address] Physician Nephrology 11/23/20 after 10/13/2023
--- NOTE | 2024-10-12 02:31 | ER ---
Nurse's Notes [facility] Name: Xiang Rouse Age: 59 yrs Sex: Male : 1965 Arrival Date: 10/12/2024 Time: 00:32 Bed 7 Private MD: Diagnosis: Other mechanical complication of urinary (indwelling) catheter Presentation: 10/12 01:29 Chief complaint: Patient states: Had surgery today, sent home with horne leg bag. cg Patient states it is not draining properly. Coronavirus screen: Vaccine status: Patient reports receiving the 2nd dose of the covid vaccine. Ebola Screen: Patient negative for fever greater than or equal to 101.5 degrees Fahrenheit, and additional compatible Ebola Virus Disease symptoms. 01:29 Method Of Arrival: Ambulatory cg 01:41 Initial Sepsis Screen: Does the patient meet any 2 criteria? No. Patient's initial lg3 sepsis screen is negative. Does the patient have a suspected source of infection? No. Patient's initial sepsis screen is negative. Risk Assessment: Do you want to hurt yourself or someone else? Patient reports no desire to harm self or others. Onset of symptoms was October 12, 2024. 01:41 Acuity: NUVIA 4 lg3 Triage Assessment: 01:41 General: Appears in no apparent distress. comfortable, Behavior is calm, cooperative. lg3 Pain: Denies pain. EENT: No deficits noted. No signs and/or symptoms were reported regarding the EENT system. Neuro: No deficits noted. Schmid Agitation-Sedation Scale (RASS): 0 - Alert and Calm Level of Consciousness is awake, alert, obeys commands, Oriented to person, place, time, situation. Cardiovascular: No deficits noted. Denies chest pain, shortness of breath, Capillary refill < 3 seconds Clubbing of nail beds is absent JVD is absent Patient's skin is warm and dry. Respiratory: No deficits noted. Airway is patent Respiratory effort is even, unlabored, Respiratory pattern is regular, symmetrical. GI: No deficits noted. Abdomen is flat, non-distended. : Reports inability to void. Derm: No deficits noted. No signs and/or symptoms reported regarding the dermatologic system. Skin is intact, is healthy with good turgor, Skin is dry, Skin is normal, Skin temperature is warm. Musculoskeletal: No deficits noted. No signs and/or symptoms reported regarding the musculoskeletal system. Circulation, motion, and sensation intact. Range of motion: intact in all extremities. Historical: - Allergies: 01:41 biologics; lg3 01:41 insect venom; lg3 - Home Meds: :41 Trileptal oral [Active]; lg3 - PMHx: 01:41 brain tumor; Seizure; pulmonary embolism; lg3 - PSHx: 01:41 inguinal hernia; brain; lg3 - Immunization history:: Adult Immunizations up to date. - Infectious Disease History:: Denies. - Social history:: Smoking status: Patient denies any tobacco usage or history of. Screenin:45 [facility] ED Fall Risk Assessment (Adult) History of falling in the last 3 months, lg3 including since admission No falls in past 3 months (0 pts) Confusion or Disorientation No (0 pts) Intoxicated or Sedated No (0 pts) Impaired Gait No (0 pts) Mobility Assist Device Used No (0 pt) Altered Elimination No (0 pt) Score/Fall Risk Level 0 - 2 = Low Risk Oriented to surroundings, Maintained a safe environment, Educated pt \T\ family on fall prevention, incl call for assistance when getting out of bed, Assessed \T\ reinforced patient's understanding of fall precautions. Abuse screen: Denies threats or abuse. Denies injuries from another. Nutritional screening: No deficits noted. Tuberculosis screening: No symptoms or risk factors identified. Assessment: :45 General: see triage assessment. lg3 02:51 General: Horne bag draining properly at this time. patient and caregiver in need of 3 Horne catheter care education. education provided. Pain: Denies pain. Neuro: No deficits noted. Schmid Agitation-Sedation Scale (RASS): 0 - Alert and Calm Level of Consciousness is awake, alert, obeys commands, Oriented to person, place, time, situation. Cardiovascular: No deficits noted. Denies chest pain, shortness of breath, Capillary refill < 3 seconds Clubbing of nail beds is absent JVD is absent Patient's skin is warm and dry. Respiratory: No deficits noted. Airway is patent Respiratory effort is even, unlabored, Respiratory pattern is regular, symmetrical. GI: No deficits noted. No signs and/or symptoms were reported involving the gastrointestinal system. : No deficits noted. 3-way catheter in place to gravity drainage Urine is clear. EENT: No deficits noted. No signs and/or symptoms were reported regarding the EENT system. Derm: No deficits noted. No signs and/or symptoms reported regarding the dermatologic system. Skin is intact, is healthy with good turgor, Skin is dry. Musculoskeletal: No deficits noted. No signs and/or symptoms reported regarding the musculoskeletal system. Circulation, motion, and sensation intact. Range of motion: intact in all extremities. Vital Signs: 01:29 BP 131 / 77; Pulse 84; Resp 16; Temp 97.9; Pulse Ox 99% ; cg 02:51 BP 129 / 79; Pulse 74; Resp 17 S; Pulse Ox 100% on R/A; Pain 0/10; lg3 02:51 Pain Scale: Adult lg3 ED Course: 00:33 Patient arrived in ED. rg4 00:38 Kameron Méndez MD is Attending Physician. anne marie 01:41 Triage completed. lg3 01:41 Arm band placed on right wrist. lg3 01:45 Patient has correct armband on for positive identification. Placed in gown. Bed in low lg3 position. Call light in reach. Door closed. Noise minimized. Warm blanket given. Pillow given. Family accompanied patient. 02:30 Quintin Keene MD is Referral Physician. anne marie 02:51 No provider procedures requiring assistance completed. Patient did not have IV access lg3 during this emergency room visit. Administered Medications: No medications were administered Medication: 01:45 VIS not applicable for this client. lg3 Outcome: 02:31 Discharge ordered by . anne marie 02:51 Discharged to home ambulatory, with significant other, lg3 02:51 Condition: stable 02:51 Discharge instructions given to patient, Instructed on discharge instructions, follow up and referral plans. horne catheter care Demonstrated understanding of instructions, 02:57 Patient left the ED. lg3 Signatures: Kameron Méndez MD MD cha Garcia, Cindy, RN Geeta Marin 4 Barbara Silverman RN RN lg3 Corrections: (The following items were deleted from the chart) 02:51 01:29 Chief complaint: Patient states: Had surgery today, sent home with horne leg bag. lg3 Patient states it is not draining properly.
--- NOTE | 2024-10-12 02:31 | EDPHYS ---
Physician Documentation [facility] Name: Xiang Rouse Age: 59 yrs Sex: Male : 1965 Arrival Date: 10/12/2024 Time: 00:32 Bed 7 Private MD: TIFFANIE Physician Kameron Méndez HPI: 10/12 02:28 This 59 yrs old Male presents to ER via Ambulatory with complaints of Post anne marie Surgical Pain. 02:28 The patient presents with a Horne catheter problem, is not draining. Onset: The anne marie symptoms/episode began/occurred just prior to arrival, this morning. Modifying factors: The symptoms are alleviated by nothing, the symptoms are aggravated by nothing. Associated signs and symptoms: The patient has no apparent associated signs or symptoms. Severity of symptoms: At their worst the symptoms were mild, in the emergency department the symptoms have improved, mildly. The patient has not experienced similar symptoms in the past. Historical: - Allergies: 01:41 biologics; lg3 01:41 insect venom; lg3 - Home Meds: 01:41 Trileptal oral [Active]; lg3 - PMHx: 01:41 brain tumor; Seizure; pulmonary embolism; lg3 - PSHx: 01:41 inguinal hernia; brain; lg3 - Immunization history:: Adult Immunizations up to date. - Infectious Disease History:: Denies. - Social history:: Smoking status: Patient denies any tobacco usage or history of. ROS: 02:29 Constitutional: Negative for fever, chills, and weight loss, Eyes: Negative for injury, anne marie pain, redness, and discharge, ENT: Negative for injury, pain, and discharge, Neck: Negative for injury, pain, and swelling, Cardiovascular: Negative for chest pain, palpitations, and edema, Respiratory: Negative for shortness of breath, cough, wheezing, and pleuritic chest pain, Abdomen/GI: Negative for abdominal pain, nausea, vomiting, diarrhea, and constipation, Back: Negative for injury and pain, MS/Extremity: Negative for injury and deformity, Skin: Negative for injury, rash, and discoloration, Neuro: Negative for headache, weakness, numbness, tingling, and seizure, Psych: Negative for depression, anxiety, suicide ideation, homicidal ideation, and hallucinations, Allergy/Immunology: Negative for hives, rash, and allergies, Endocrine: Negative for neck swelling, polydipsia, polyuria, polyphagia, and marked weight changes, Hematologic/Lymphatic: Negative for swollen nodes, abnormal bleeding, and unusual bruising, 02:29 : Positive for small amounts, horne blocked, Exam: 02:29 Constitutional: This is a well developed, well nourished patient who is awake, alert, anne marie and in no acute distress. Head/Face: Normocephalic, atraumatic. Eyes: Pupils equal round and reactive to light, extra-ocular motions intact. Lids and lashes normal. Conjunctiva and sclera are non-icteric and not injected. Cornea within normal limits. Periorbital areas with no swelling, redness, or edema. ENT: Nares patent. No nasal discharge, no septal abnormalities noted. Tympanic membranes are normal and external auditory canals are clear. Oropharynx with no redness, swelling, or masses, exudates, or evidence of obstruction, uvula midline. Mucous membranes moist. Neck: Trachea midline, no thyromegaly or masses palpated, and no cervical lymphadenopathy. Supple, full range of motion without nuchal rigidity, or vertebral point tenderness. No Meningismus. Chest/axilla: Normal chest wall appearance and motion. Nontender with no deformity. No lesions are appreciated. Cardiovascular: Regular rate and rhythm with a normal S1 and S2. No gallops, murmurs, or rubs. Normal PMI, no JVD. No pulse deficits. Respiratory: Lungs have equal breath sounds bilaterally, clear to auscultation and percussion. No rales, rhonchi or wheezes noted. No increased work of breathing, no retractions or nasal flaring. Abdomen/GI: Soft, non-tender, with normal bowel sounds. No distension or tympany. No guarding or rebound. No evidence of tenderness throughout. Back: No spinal tenderness. No costovertebral tenderness. Full range of motion. Skin: Warm, dry with normal turgor. Normal color with no rashes, no lesions, and no evidence of cellulitis. MS/ Extremity: Pulses equal, no cyanosis. Neurovascular intact. Full, normal range of motion., bilateral aka Neuro: Awake and alert, GCS 15, oriented to person, place, time, and situation. Cranial nerves II-XII grossly intact. Motor strength 5/5 in all extremities. Sensory grossly intact. Cerebellar exam normal. Normal gait. Psych: Awake, alert, with orientation to person, place and time. Behavior, mood, and affect are within normal limits. 02:29 : CVA tenderness, is absent, Male external genitalia: normal, Bladder: is normal, non-distended, non-tender, a horne is noted, urine is clear, Vital Signs: 01:29 BP 131 / 77; Pulse 84; Resp 16; Temp 97.9; Pulse Ox 99% ; cg 02:51 BP 129 / 79; Pulse 74; Resp 17 S; Pulse Ox 100% on R/A; Pain 0/10; lg3 02:51 Pain Scale: Adult lg3 MDM: 00:38 Medical Screening Exam initiated anne marie Administered Medications: No medications were administered Disposition Summary: 10/12/24 02:31 Discharge Ordered Notes: Location: Home anne marie Problem: new anne marie Symptoms: have improved anne marie Condition: Stable anne marie Diagnosis - Other mechanical complication of urinary (indwelling) catheter anne marie Followup: anne marie - With: Private Physician - When: 2 - 3 days - Reason: Recheck today's complaints, Continuance of care, Re-evaluation by your physician Followup: anne marie - With: Quintin Keene MD - When: 2 - 3 days - Reason: Recheck today's complaints, Continuance of care, Re-evaluation by your physician Discharge Instructions: - Discharge Summary Sheet anne marie - Indwelling Urinary Catheter Care, Adult anne marie - Indwelling Urinary Catheter Care, Adult, [id number] [facility] Forms: - Medication Reconciliation Form anne marie - Antibiotic Education anne marie - Prescription Opioid Use anne marie - Patient Portal Instructions [facility] - Leadership Thank You Letter [facility] Signatures: Dispatcher [employer] [facility] Kameron Méndez MD MD cha Able, Lacie RN RN lg3 Corrections: (The following items were deleted from the chart) 00:39 00:39 Urinalysis+U.LAB.BRZ ordered. [facility] EDIN 02:57 00:39 Horne ordered. anne marie lg3
[2024-10-12 03:02] VITALS: TEMP 97.9
[2024-10-12 03:03] VITALS: BP 129/79; O2SAT 100
== END 2024-10-12 02:57 | disposition home or self-care (01) ==
LOC: ER 00:32
DX: T83.098A Other mechanical complication of other urinary catheter, initial encounter (principal)
CPT/HCPCS: 99282

== ENCOUNTER 2024-11-01 14:03 | Emergency (ER) | payer OTHER, BC ==
--- OUTSIDE RECORDS SUMMARY | 2024-11-01 14:06 | XMS REPORT | Continuity of Care Document ---
Author Name Unknown Organization [facility] Address [address] [place] [address] Care Team Providers Care Brazer Resistance Name Role Phone Russell Cowan MD Unavailable [phone] Marisela Rao MD Primary Care Provider + [phone] Wendy Christianson [facility] Unavailable [phone] Valentina Arias MD PhD Unavailable + [phone] Sonido Shaw MD Unavailable Encounters Date Type Department Care Team Description 10/17/2024 Orders Only [facility] [address] [facility] [address] [facility], [address]th [place] [address] Cecy Sorto APRN Oligodendroglioma; Seizure, not otherwise specified 10/17/2024 Refill [facility] [address] [facility] [address] [facility], 7th [place] [address] Cecy Sorto APRN Oligodendroglioma; Seizure, not otherwise specified 09/26/2024 Orders Only [facility] [address] [facility] [address], 7th [place] [address] Cecy Sorto APRN Oligodendroglioma (Primary Dx); Hyposmolality and/or hyponatremia 09/04/2024 Telephone [facility] [address] [facility], 7th [place] [address] Laina Zuniga RN 06/28/2024 Orders Only [facility] [address] [facility], 7th [place] [address] Cecy Sorto APRN Oligodendroglioma (Primary Dx) 06/24/2024 10:20 AM CROWN ASSEMBLY MACHINE OPERATOR - 06/24/2024 11:59 PM CROWN ASSEMBLY MACHINE OPERATOR Hospital Encounter [facility] [address] [facility], 1st [place] [address] Valentina Arias MD PhD Oligodendroglioma (Primary Dx) Discharge Disposition: Home 06/18/[address] Imaging [address] [facility], [address]th [place] [address] Haleigh Hand MD 06/18/2024 Travel 06/18/2024 9:15 AM CROWN ASSEMBLY MACHINE OPERATOR Ancillary Procedure [facility] [address] [place] [address] Marisela Rao MD Oligodendroglioma 06/18/2024 1:00 PM CROWN ASSEMBLY MACHINE OPERATOR Office Visit [facility] [facility], [address]th [place] [address] Marisela Rao MD Oligodendroglioma 01/16/2024 4:00 PM CDT Telephone [facility], 7th [place] [address] Marisela Rao MD 12/20/2023 Orders Only Neuroradiology [address] [place] [address] Brandon Calderon MD 12/20/2023 8:48 AM CDT - 12/20/2023 11:59 PM CDT Hospital Encounter [facility] [address] [place] [address] Valentina Arias MD PhD Oligodendroglioma Discharge Disposition: Home 12/19/2023 Travel 12/19/2023 9:15 AM CDT Ancillary Procedure [facility] [address] [place] [address] Cecy Sorto APRN Oligodendroglioma 12/19/2023 1:00 PM CDT Office Visit [facility] [address] [facility] Main [facility], [address]th [place] [address] Marisela Rao MD Oligodendroglioma 11/07/2023 Orders Only [facility] [address] [facility] Main [facility], 7th [place] [address] Cecy Sorto APRN Oligodendroglioma (Primary Dx) after 11/02/2023 Allergies Active Allergy Reactions Criticality Noted Date Comments Insect Venom Itching,Swelling 03/02/2020 after 11/02/2023 Medications acetaminophen (TYLENOL) 500 mg tablet Take [...] by mouth. Active OXcarbazepine (TrileptaL) 300 mg tabletIndications :Oligodendrogliom a,Seizure, not otherwise specified Take 2 tablets (600 mg) by mouth twice daily. 360 tablet 3 5 Active polyethylene glycol (MIRALAX) 17 g packetIndications :Saddle embolism of pulmonary artery,Acute deep venous thrombosis of right femoral vein,Other constipation Take 17 g by mouth daily as needed (constipati on). 0 2 07/02/20 24 Discontinu ed(Other/N ot Applicable ) zinc gluconate 50 mg tablet Take 1 tablet (50 mg) by mouth daily. 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 90 tablet 3 4 07/02/20 24 Discontinu ed(Therapy completed) OXcarbazepine (TrileptaL) 300 mg tabletIndications :Oligodendrogliom a,Seizure, not otherwise specified Take 2 tablets (600 mg) by mouth twice daily. 360 tablet 3 4 10/18/19 25 Discontinu ed(Reorder ) after 11/02/2023 Active Problems Problem Noted Date Diagnosed Date [...] 06/02/2020 Assessment & Plan (06/02/2020 11:14 AM CROWN ASSEMBLY MACHINE OPERATOR): Pt has tolerated XRT well, other than [...] 06/02/2020 Assessment & Plan (06/02/2020 11:08 AM CROWN ASSEMBLY MACHINE OPERATOR): Pt has been experiencing constipation since starting [...] (03/16/2020): Added automatically from request for surgery [id number] Mass lesion of brain 02/25/2020 Seizure 02/25/2020 Other signs and symptoms involving cognition after 11/02/2023 Family History Medical History Relation Name Comments -Other cancer Father Xiang Rouse Throat can cer due to smoking Breast cancer Mother Leobardo Rouse Breast cancer Sister Phyllis Mcmanus Relation Name Status Comments Father Xiang Rouse Mother Leobardo Rouse Sister Phyllis Mcmanus after 11/02/2023 Social History Smoking Status as of 06/24/2024 [...] Straight 02/21/2020 9: 43 AM CDT after 11/02/2023 Last Filed Vital Signs Vital Sign Reading Time Taken Comments Blood Pressure 106/64 06/18/2024 12:53 PM CROWN ASSEMBLY MACHINE OPERATOR Pulse 94 06/18/2024 12:53 PM CROWN ASSEMBLY MACHINE OPERATOR Temperature 36.4 °C (97.5 °F) 06/18/2024 12:[address] Respiratory Rate 18 06/18/2024 12:53 PM CROWN ASSEMBLY MACHINE OPERATOR Oxygen Saturation 98% 06/18/2024 12:53 PM CROWN ASSEMBLY MACHINE OPERATOR Inhaled Oxygen Concentration - - Weight 71 kg (156 lb 8.4 oz) 06/18/2024 9:00 AM CROWN ASSEMBLY MACHINE OPERATOR Height 180.8 cm (5' 11.18") 12/19/2023 11:37 AM CDT Body Mass Index 21.72 12/19/2023 11:37 AM CDT after 11/02/2023 Plan of Treatment Upcoming Encounters Date Type Department Care Team (Late st Contact Info) Description 12/17/2024 7:30 AM CDT Ancillary Procedure [facility] [address] [place] [address] Marisela Rao MD [address] [place] [id number] [email or web address] 12/[email or web address] 1:00 PM CDT Office Visit [facility] [address] [place] [address] Main [facility], 7th [place] [address] Marisela Rao MD [address] [place] [id number] [email or web address] 12/18/2024 9:40 AM CDT Appointment [facility] [address] [place] [address] Valentina Arias MD PhD [address] [place] [phone] [email or web address] 11/02/2023 Medical Devices Implanted Type Area Ad Setter Device Identifier Shelf Expiration Date Model / Serial / Lot Screw Matrixneuro 4mm Self Drilling Pkg 1 - Sn/A Implanted:Qty: 14 on 03/20/2020 by Ashlyn Wilson MD at [facility] Metalware Left: Cranial Fuelzee 4.01 / N/A / N/A Plate Crani Str 2h Lo Prof - Sn/A Implanted:Qty: 2 on 03/20/2020 by Ashlyn Wilson MD at [facility] Metalware Left: Cranial SYNTHES [employer] 2 / N/A / N/A Myesha Hole Crani 17mm Low Profile - Sn/A Implanted:Qty: 2 on 03/20/2020 by Ashlyn Wilson MD at [facility] Metalware Left: Cranial SYN[employer] 3 / N/A / N/A Sealant Duraseal 5ml - Snone Implanted:Qty: 1 on 03/20/2020 by Ashlyn Wilson MD at [facility] Skin/Tissue Left: Brain COVIDIEN 03/16/2021 [id number] / NONE / [id number] Explanted Type Area Ad Setter Device Identifier Shelf Expiration Date Model / Serial / Lot Metal In The Eyes-04/28/2000 Implanted:04/28 (Quantity not on file) Bilateral: Orbit Description:Cleared for scan darius by Dr. Brandon Calderon (Attending Neuro Radiologist) on 04.28.23 at 11:[address] Head exam dated 08.20.2021. after 11/02/2023 Procedures Procedure Name Priority Date/Time Associated Diagnosis Comments MRI BRAIN W WO CONTRAST Routine 06/18/2024 11:03 AM CROWN ASSEMBLY MACHINE OPERATOR Oligodendroglioma MRI BRAIN W WO CONTRAST Routine 12/19/2023 10:27 AM CDT Oligodendroglioma after 11/02/2023 Results * MRI Brain with and without Contrast (06/18/2024 11:03 AM CROWN ASSEMBLY MACHINE OPERATOR) Only the most recent of2 resultswithin the time period is included. Anatomical Region Laterality Modality Head Magnetic Resonan ce 06/18/2024 1:51 PM CROWN ASSEMBLY MACHINE OPERATOR Impressions 06/18/2024 2:01 PM CROWN ASSEMBLY MACHINE OPERATOR No appreciable change compared to the prior study (Category: BT-2) ACTIONABLE ITEMS/RECOMMENDATIONS*: None. *An Actionable Finding is a finding that may be unrelated to the original reason for imaging but potentially actionable, meaning further investigation may be necessary. The Actionable Findings Vigilance Unit (AFVU) assists medical providers with responding to additional radiologic findings that are unexpected and potentially actionable. Narrative 06/18/2024 2:01 PM CROWN ASSEMBLY MACHINE OPERATOR FULL RESULT: Examination: MRI BRAIN W WO [...] unexpected and potentially actionable. 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 12/19/2023 Oligodendroglioma 12/20/2023 Oligodendroglioma 06/18/2024 Oligodendroglioma 06/18/2024 Oligodendroglioma 06/24/2024 Oligodendroglioma 06/28/2024 Oligodendroglioma 09/26/2024 Hyposmolality and/or hyponatremia 09/26/2024 Oligodendroglioma 10/17/2024 Seizure, not otherwise specified 10/17/2024 Oligodendroglioma 10/17/2024 Seizure, not otherwise specified 10/17/2024 after 11/02/2023 Care Teams Brazer Resistance Relationship Specialty Start Date End Date Russell Cowan MD [address] [place] [address] [email or web address] PCP - External Follow Up A Internal Medicine 02/18/20 Marisela Rao MD [address] [place] [id number] [email or web address] PCP - General Neuro-Oncology 06/23/20 Wendy Christianson, [facility] [address] [place] [phone] [email or web address] Speech Language Pathologist Speech Pathology 03/18/20 Valentina Arias MD PhD [address] [place] [address] [email or web address] Consulting Physician Radiation Oncology 02/26/20 Sonido Shaw MD [address] [place] [address] [email or web address] [email or web address] Physician Nephrology 11/23/20 after 11/02/2023
[2024-11-01 16:04] LABS: Hematocrit 42.5 % (39.6-49.0); Hemoglobin 15.2 g/dL (13.6-17.9); MCH 31.2 pg (27.0-35.0); MCHC 35.7 g/dL (32.0-36.0); MCV 87.5 fL (80-100); MPV 6.7 fL (7.6-11.3); Platelets 225 thou/uL (152-406); RBC Red Blood Cell Count 4.85 M/uL (4.33-5.43); Red Cell Distribution Width 13.7 % (12.1-15.2)
[2024-11-01 16:22] LABS: Anion Gap 8.5 mEq/L (5.0-15.0); Potassium 3.5 mEq/L (3.5-5.1)
--- NOTE | 2024-11-01 17:33 | RAD REPORT ---
EXAM: CT brain without contrast HISTORY: Dizziness COMPARISON: None TECHNIQUE: Multiple contiguous axial images were obtained and a CT of the brain without contrast.. Sagittal and coronal reconstruction performed. Automated exposure control, adjustment of the mA and/or kV according to patient size, and/or iterative reconstruction. Unless otherwise specified, incidental f indings do not require dedicated imaging follow-up FINDINGS: Left craniotomy. Low density left frontal lobe with calcifications. The adjacent left lateral ventricle is dilated. Low-density left temporal lobe probably chronic. An acute intracranial bleed not noted. An intracranial bleed is not seen No extra-axial fluid collection noted No significant hypodensity within the brain No fluid within the visualized sinuses or mastoids noted. IMPRESSION: The patient has had a left craniotomy for brain tumor resection. Low-density and calcification left f rontal lobe likely gliosis. This results in dilatation of the adjacent left lateral ventricle. If the patient's symptoms persist then nonemergent MRI brain with contrast would be recommended..
--- NOTE | 2024-11-01 18:14 | ER ---
Nurse's Notes [facility] Name: Xiang Rouse Age: 59 yrs Sex: Male : 1965 Arrival Date: 11/01/2024 Time: 14:03 Bed 19 [facility] MD: Diagnosis: Headache Presentation: 11/01 14:22 Chief complaint: Patient states: DIZZINESS, FATIGUE, CONWAY. Coronavirus screen: At this ld1 time, the client does not indicate any symptoms associated with coronavirus-19. Ebola Screen: No symptoms or risks identified at this time. Initial Sepsis Screen: Does the patient meet any 2 criteria? No. Patient's initial sepsis screen is negative. Does the patient have a suspected source of infection? No. Patient's initial sepsis screen is negative. Risk Assessment: Do you want to hurt yourself or someone else? Patient reports no desire to harm self or others. Onset of symptoms is unknown. 14:22 Method Of Arrival: Ambulatory ld1 14:22 Acuity: NUVIA 3 ld1 Triage Assessment: 14:23 General: Appears in no apparent distress. Behavior is calm, cooperative, appropriate ld1 for age. Pain: Complains of pain in head. EENT: No deficits noted. Neuro: Reports headache. Cardiovascular: Rhythm is sinus rhythm. Respiratory: No deficits noted. GI: No signs and/or symptoms were reported involving the gastrointestinal system. : No signs and/or symptoms were reported regarding the genitourinary system. Derm: No deficits noted. Musculoskeletal: No deficits noted. Historical: - Allergies: 14:23 biologics; ld1 14:23 insect venom; ld1 - Home Meds: 14:23 Trileptal oral [Active]; ld1 - PMHx: 14:23 BRAIN TUMOR; Pulmonary Embolism; Seizure; ld1 - PSHx: 14:23 Brain; inguinal hernia; ld1 - Immunization history:: Adult Immunizations up to date. - Infectious Disease History:: Denies. - Social history:: Smoking status: Patient denies any tobacco usage or history of. Screenin:25 [facility] ED Fall Risk Assessment (Adult) History of falling in the last 3 months, ld1 including since admission No falls in past 3 months (0 pts) Confusion or Disorientation No (0 pts) Intoxicated or Sedated No (0 pts) Impaired Gait Yes (1 pt) Mobility Assist Device Used No (0 pt) Altered Elimination No (0 pt) Score/Fall Risk Level 0 - 2 = Low Risk Oriented to surroundings. Abuse screen: Denies threats or abuse. Denies injuries from another. Nutritional screening: No deficits noted. Tuberculosis screening: No symptoms or risk factors identified. Assessment: 14:25 General: Appears in no apparent distress. uncomfortable, Behavior is calm, cooperative, ld1 appropriate for age. 16:15 Reassessment: Patient appears in no apparent distress at this time. Patient and/or db family updated on plan of care and expected duration. Pain level reassessed. Patient is alert, oriented x 3, equal unlabored respirations, skin warm/dry/pink. General: Appears in no apparent distress. comfortable, Behavior is calm, cooperative. Neuro: Level of Consciousness is awake, alert, obeys commands, Oriented to person, place, time, situation, Reports dizziness. Respiratory: Airway is patent Respiratory effort is even, unlabored, Respiratory pattern is regular, symmetrical. 17:00 Reassessment: Patient appears in no apparent distress at this time. Patient and/or db family updated on plan of care and expected duration. Pain level reassessed. Patient is alert, oriented x 3, equal unlabored respirations, skin warm/dry/pink. 18:39 Reassessment: Patient appears in no apparent distress at this time. Patient and/or db family updated on plan of care and expected duration. Pain level reassessed. Patient is alert, oriented x 3, equal unlabored respirations, skin warm/dry/pink. Patient states feeling better. Vital Signs: 14:22 BP 135 / 88; Pulse 90; Resp 16; Temp 98; Pulse Ox 99% ; ld1 16:16 BP 130 / 78; Pulse 77; Resp 18; Pulse Ox 100% on R/A; db 18:00 BP 126 / 81; Pulse 85; Resp 16; Pulse Ox 99% on R/A; db ED Course: 14:05 Patient arrived in ED. im 14:06 Suzy Richey MD is Attending Physician. gb1 14:23 Triage completed. ld1 14:23 Arm band placed on. ld1 14:25 Patient has correct armband on for positive identification. ld1 14:25 No provider procedures requiring assistance completed. ld1 15:52 Radiology exam delayed due to family wanting to wait on lab work. rs4 15:55 Initial lab(s) drawn, by me, sent to lab. Inserted saline lock: 20 gauge in left db forearm, using aseptic technique. Blood collected. Flushed with 10 mL NS. 16:03 Светлана Garcia, RN is Primary Nurse. db 17:28 CT Head Brain wo Cont In Process Unspecified. EDMS 18:40 Provided Education on: DISCHARGE AND FOLLOWUP . Client placed on continuous cardiac and db pulse oximetry monitoring. NIBP monitoring applied. monitoring tech on. Pulse ox on. NIBP on. Warm blanket given. Pillow given. 18:40 IV discontinued, intact, bleeding controlled, No redness/swelling at site. db Administered Medications: No medications were administered Medication: 14:25 VIS not applicable for this client. ld1 Outcome: 18:13 Discharge ordered by . yady 18:40 Discharged to home ambulatory, with family, db 18:40 Condition: stable 18:40 Discharge instructions given to patient, family, Instructed on discharge instructions, follow up and referral plans. 18:41 Patient left the ED. db Signatures: Dispatcher [employer] EDMS Cecy Zamudio, RN RN ld1 Светлана Garcia, RN RN Winnie Hernandez rs4 Eda Veloz Gina, MD MD gb1
--- NOTE | 2024-11-01 18:14 | EDPHYS ---
Physician Documentation [facility] Name: Xiang Rouse Age: 59 yrs Sex: Male : 1965 Arrival Date: 11/01/2024 Time: 14:03 Bed 19 Private MD: ED Physician Suzy Richey HPI: 11/01 18:23 This 59 yrs old Male presents to ER via Ambulatory with complaints of gb1 Abnormal Lab Results. 18:23 59-year-old male with a history of a brain tumor that was resected back in 2020 now is gb1 coming with a left-sided headache. Patient denies any fever any vision changes or chills. Denies any neck pain or at this time the headache is not first, worse, sudden or maximal in onset. He has had the headache intermittently for 2 to 3 days. His history also of PE and seizure. He is getting care and has had evaluation at [facility]. He is pending an MRI of the brain in December 2024.. Historical: - Allergies: 14:23 biologics; ld1 14:23 insect venom; ld1 - Home Meds: 14:23 Trileptal oral [Active]; ld1 - PMHx: 14:23 BRAIN TUMOR; Pulmonary Embolism; Seizure; ld1 - PSHx: 14:23 Brain; inguinal hernia; ld1 - Immunization history:: Adult Immunizations up to date. - Infectious Disease History:: Denies. - Social history:: Smoking status: Patient denies any tobacco usage or history of. Exam: 18:23 Constitutional: This is a well developed, well nourished patient who is awake, alert, gb1 and in no acute distress. Head/Face: Normocephalic, atraumatic. Eyes: Pupils equal round and reactive to light, extra-ocular motions intact. Lids and lashes normal. Conjunctiva and sclera are non-icteric and not injected. Cornea within normal limits. Periorbital areas with no swelling, redness, or edema. ENT: Nares patent. No nasal discharge, no septal abnormalities noted. Tympanic membranes are normal and external auditory canals are clear. Oropharynx with no redness, swelling, or masses, exudates, or evidence of obstruction, uvula midline. Mucous membranes moist. Neck: Trachea midline, no thyromegaly or masses palpated, and no cervical lymphadenopathy. Supple, full range of motion without nuchal rigidity, or vertebral point tenderness. No Meningismus. Chest/axilla: Normal chest wall appearance and motion. Nontender with no deformity. No lesions are appreciated. Cardiovascular: Regular rate and rhythm with a normal S1 and S2. No gallops, murmurs, or rubs. Normal PMI, no JVD. No pulse deficits. Respiratory: Lungs have equal breath sounds bilaterally, clear to auscultation and percussion. No rales, rhonchi or wheezes noted. No increased work of breathing, no retractions or nasal flaring. Abdomen/GI: Soft, non-tender, with normal bowel sounds. No distension or tympany. No guarding or rebound. No evidence of tenderness throughout. Back: No spinal tenderness. No costovertebral tenderness. Full range of motion. Skin: Warm, dry with normal turgor. Normal color with no rashes, no lesions, and no evidence of cellulitis. MS/ Extremity: Pulses equal, no cyanosis. Neurovascular intact. Full, normal range of motion. Neuro: Awake and alert, GCS 15, oriented to person, place, time, and situation. Cranial nerves II-XII grossly intact. Motor strength 5/5 in all extremities. Sensory grossly intact. Cerebellar exam normal. Normal gait. Vital Signs: 14:22 BP 135 / 88; Pulse 90; Resp 16; Temp 98; Pulse Ox 99% ; ld1 16:16 BP 130 / 78; Pulse 77; Resp 18; Pulse Ox 100% on R/A; db 18:00 BP 126 / 81; Pulse 85; Resp 16; Pulse Ox 99% on R/A; db MDM: 14:28 Medical Screening Exam initiated gb 18:23 Data reviewed: vital signs, nurses notes, lab test result(s), CBC, white blood cell gb1 count, hemoglobin, hematocrit, platelets, electrolytes, sodium, potassium, chloride, serum bicarbonate, BUN, creatinine, serum glucose, radiologic studies, CT scan. 18:23 ED course: 59-year-old male status post left craniotomy for oligodendroglioma in 2020 gb1 is here for persistent headache. Headache is not worse, worse, sudden or maximal in onset I doubt acute intracranial hemorrhage she has not had any trauma I doubt a subdural hematoma or skull fracture. His sodium today is 129 and otherwise patient appears euvolemic. He does not have any fevers no nuchal rigidity I doubt acute meningitis. Patient did have a CT of the brain done today did not see any mass occupying lesion that did see an area of gliosis which compared to the MRI of his brain previously in June 2024 which was compared to an MRI that was done in December 2023 this appears to be an old gliosis scar. There is no sign of any kind of midline shift or cerebral edema. Patient is discharged to follow-up with his treating neurosurgeon at [facility] in December with a follow-up MRI study that is previously scheduled to be completed. I have given emesis of return precautions to which him and his are compliant with prior discharge home today.. 11/01 14:29 Order name: CBC w/o diff; Complete Time: 16:24 gb1 11/01 14:29 Order name: BMP; Complete Time: 16:24 gb1 11/01 14:29 Order name: CT Head Brain wo Cont; Complete Time: 17:42 gb1 Administered Medications: No medications were administered Disposition Summary: 11/01/24 18:13 Discharge Ordered Notes: Location: Home gb1 Problem: new gb1 Symptoms: have improved gb1 Condition: Stable gb1 Diagnosis - Headache gb1 Followup: gb1 - With: Private Physician - When: - Reason: If symptoms return Discharge Instructions: - Discharge Summary Sheet gb1 - General Headache Without Cause, [id number] gb1 Forms: - Medication Reconciliation Form gb1 - Antibiotic Education gb1 - Prescription Opioid Use gb1 - Patient Portal Instructions gb1 - Leadership Thank You Letter gb1 Signatures: Dispatcher [employer] Cecy Chan, TRINI RN ld1 Suzy Richey MD MD gb1
[2024-11-01 18:52] VITALS: TEMP 98
[2024-11-01 18:56] VITALS: BP 126/81; O2SAT 99
== END 2024-11-01 18:41 | disposition home or self-care (01) ==
LOC: ER 14:03
DX: R51.9 Headache, unspecified (principal); Z86.711 Personal history of pulmonary embolism
CPT/HCPCS: 36415; 70450; 80048; 85027